=== PATIENT | male | born 1940 | race Caucasian/White ===

== ENCOUNTER → 2017-07-19 | Outpatient (CLI) | payer MEDICARE ==
[~2017-07-19] MED LIST: CEPH500C3 PO; CIAL20TA PO; DARV PO; FERR300S PO; FISH1000 PO; FURO10S PO; GLUCTAB PO; LIPI40TA PO; LISI40TA PO; LORT5TAB PO; OYST500T77 PO; SITA25 PO; TAB-TAB PO; ZOLO20CO PO
== END ==
LOC: HRSP 12:19
PROVIDERS: ATTEND Internal Medicine Sleep Medicine
DX: R06.89 Other abnormalities of breathing (principal)
CPT/HCPCS: 36600; 82805; 94060; 94726; 94729